=== PATIENT | female | born 1940 | race Caucasian/White ===

== ENCOUNTER → 2021-02-10 | Outpatient (CLI) | payer MEDICARE, BC | LOC: RAD 14:08 | DX: M54.9 Dorsalgia, unspecified (principal); M25.50 Pain in unspecified joint; M51.36 Other intervertebral disc degeneration, lumbar region | CPT/HCPCS: 72110; 73564 ==

== ENCOUNTER → 2021-08-25 | Outpatient (CLI) | payer MEDICARE, BC | LOC: ECHO 10:15 | DX: R01.1 Cardiac murmur, unspecified (principal) | CPT/HCPCS: ECHO; 93306 ==